=== PATIENT | female | born 1990 | race American Indian/Alaskan Native ===

== ENCOUNTER 2018-11-08 17:49 | Emergency (ER) | payer OTHER ==
[2018-11-08 19:11] VITALS: BMI 27.1
== END 2018-11-08 19:10 | disposition still patient (30) ==
LOC: C.EROB 17:49
DX: O42.92 Full-term premature rupture of membranes, unspecified as to length of time between rupture and onset of labor (principal); Z3A.39 39 weeks gestation of pregnancy

== ENCOUNTER 2018-11-08 17:49 | Inpatient (IN) | payer OTHER ==
[2018-11-08 19:11] VITALS: BMI 27.1
[2018-11-08] MEDS ORDERED: Oxytocin 10 Units/ml Inj IM ONE (19:11)
[2018-11-08] MEDS ORDERED: Lactated Ringer's 1,000 ML IV SCH (19:15)
--- NOTE | 2018-11-08 21:00 | OBHP ---
Datetime: 11/08/2018 19:21 IP Adm Impression: Term, intrauterine ; Active labor; Ruptured Membranes IP Admit Plan: Admit to unit; Initiate labor protocol Admit Comment, IP Provider: Patient is a 28 y/o female and sent from Dr. Alcaraz's office aft er seen in her office and found to be 4 cms dilated and with SROM in the office and with contractions . She rates her current pain at an 8/10 and constant. She feels her baby moving. She denies any feve rs, chest pain, shortness of breath, recent travel, or sick contacts. She is experiencing some vagina l bleeding. PMHx: Denies PSHx: Denies FMHx: Denies PsychHx: Denies OB: 2 previous spontaneous vaginal deliveries (one at 39 weeks,another at 38.6 weeks), JOZEF: 9, FDLMP: 02/08/18, GBS -, RPR -, varicella Ab +, Rubella ab +, - Hep B, - HIV 1 _ 2 EMAIL MARKETING ASSISTANT: Menarche at 14, no hx of STIs, 28 day cycle, cycle length 5 days, no irregularities in cycle Medications: denies Allergies:NKDA Social: Patient is and lives with her Vitals VSS Assesment: 28 y/o F at 39 weeks gestation presents in labor and with rupture of membranes Plan: Admit to L_D Admit labs ordered Anticipated vaginal delivery Ian Almonte, OMS-III Pt seen and examined with Med Student Mr. Almonte and all of his findings and POC were reviewed and agreed on. Pelvic Type - PN: Adequate Extremities - PN: Normal Abdomen - PN: Normal Back - PN: Not Done Breast - PN: Not Done Lungs - PN: Normal Heart - PN: Normal Thyroid - PN: Not Done Neurologic - PN: Not Done HEENT - PN: Normal General - PN: Normal FHR - Baseline A Provider: 120 Amniotic Fluid Color, Provider: Clear Membranes, Provider: Ruptured Contraction Comments Provider: Q 2-3 mins Comments, ACOG Physical Exam: General: Patient appears uncomfortable and in pain Cardiac: RRR, -S3, -S4 Pulmonary: CTA b/l Gestation - Est Wks by US: 39.0 IP Hx Assessment: The History has been Reviewed and is Current EGA AdmitDate IP: 39.0 Vital Signs Provider: Reviewed; Within Normal Limits IP Indication for Induction: Not Applicable IP Chief Complaint: Uterine contractions; Suspected ruptured membranes NICHD Variability Prov Fetus A: Moderate 6-25bpm NICHD Accel Fetus A IP Provider: 15X15 FHR Category Provider Fetus A: Category I NICHD Decel Fetus A IP Provider: None Dilatation, Provider: 6 Effacement, Provider: 90 Station, Provider: 0 Genitourinary Exam: Normal DTRs - PN: Not Done
--- NOTE | 2018-11-08 21:03 | OBADHP ---
Datetime: 11/08/2018 19:21 Admit Comment, IP Provider: Patient is a 28 y/o female and sent from Dr. Alcaraz's office aft er seen in her office and found to be 4 cms dilated and with SROM in the office and with contractions . She rates her current pain at an 8/10 and constant. She feels her baby moving. She denies any feve rs, chest pain, shortness of breath, recent travel, or sick contacts. She is experiencing some vagina l bleeding. PMHx: Denies PSHx: Denies FMHx: Denies PsychHx: Denies OB: 2 previous spontaneous vaginal deliveries (one at 39 weeks,another at 38.6 weeks), JOZEF: 9, FDLMP: 02/08/18, GBS -, RPR -, varicella Ab +, Rubella ab +, - Hep B, - HIV 1 _ 2 BACK HOE MACHINE OPERATOR: Menarche at 14, no hx of STIs, 28 day cycle, cycle length 5 days, no irregularities in cycle Medications: denies Allergies:NKDA Social: Patient is and lives with her Vitals VSS Assesment: 28 y/o F at 39 weeks gestation presents in labor and with rupture of membranes Plan: Admit to L_D Admit labs ordered Precipitous Vaginal Delivery shortly after admission See Delivery Note Ian Almonte, OMS-III Pt seen and examined with Med Student Mr. Almonte and all of his findings and POC were reviewed and agreed on. Pelvic Type - PN: Adequate Extremities - PN: Normal Abdomen - PN: Normal Back - PN: Not Done Breast - PN: Not Done Lungs - PN: Normal Heart - PN: Normal Thyroid - PN: Not Done Neurologic - PN: Not Done HEENT - PN: Normal General - PN: Normal FHR - Baseline A Provider: 120 Amniotic Fluid Color, Provider: Clear Membranes, Provider: Ruptured Contraction Comments Provider: Q 2-3 mins Comments, ACOG Physical Exam: General: Patient appears uncomfortable and in pain Cardiac: RRR, -S3, -S4 Pulmonary: CTA b/l Gestation - Est Wks by US: 39.0 IP Hx Assessment: The History has been Reviewed and is Current Vital Signs Provider: Reviewed; Within Normal Limits IP Chief Complaint: Uterine contractions; Suspected ruptured membranes NICHD Variability Prov Fetus A: Moderate 6-25bpm NICHD Accel Fetus A IP Provider: [id number] FHR Category Provider Fetus A: Category I NICHD Decel Fetus A IP Provider: None Dilatation, Provider: 6 Effacement, Provider: 90 Station, Provider: 0 Genitourinary Exam: Normal DTRs - PN: Not Done EGA AdmitDate IP: 39.0 IP Adm Impression: Term, intrauterine ; Active labor; Ruptured Membranes IP Admit Plan: Admit to unit; Initiate labor protocol
--- NOTE | 2018-11-08 21:14 | OBDS ---
DELIVERY PERSONNEL Delivery Doctor: Leonora Johnson DO Scrub Nurse: Patti Griffiths Chemistry Technical Officer: Carmita Rawls RN MATERNAL INFORMATION Delivery Anesthesia: None Medications in Delivery: PITOCIN Estimated Blood Loss (ml): 200 (Annotations: Data stored by CPN on behalf of user) Maternal Complications: None RN Comments: LIVE BABY BOY Provider Comments: Precipitous Vaginal Delivery of a viable male from [place] position and over an intact perineum. Apgars 9_9 and BW 6lbs, 110z. Cord Blood and Cord Ph obtained and sent Placenta with 3 vessel cord and spontaneously delivered. EBL 200 Pt ant both tolerated the procedure well and remained in LDR Room in S_S condition LABOR SUMMARY EDC: 11/15/2018 00:00 No. Babies in Womb: 1 Attempted: No Labor Anesthesia: None LABOR INFORMATION Onset of Labor: 11/08/2018 16:30 Complete Dilatation: 11/08/2018 19:00 Steroids Given: None Reason Steroids Not Administered: Not Applicable MEMBRANES Membranes Rupture Method: Spontaneous Rupture of Membranes: 11/08/2018 16:30 Length of Rupture (hrs): 2.52 Amniotic Fluid Color: Clear Amniotic Fluid Amount: Moderate Amniotic Fluid Odor: None STAGES OF LABOR Stage 1 hrs: 2 Stage 1 min: 30 Stage 2 hrs: 0 Stage 2 min: 1 Stage 3 hrs: 0 Stage 3 min: 4 Total Time in Labor hrs: 2 Total Time in Labor min: 35 VAGINAL DELIVERY Episiotomy: None Laceration Extension: N/A Laceration Type: None Laceration Repair: Not Applicable Initial Vag Sponge Count: 10 Final Vag Sponge Count: 10 Initial Vag Sharps Count: 0 Final Vag Sharps Count: 0 Sponge Count Correct: Yes Sharps Count Correct: N/A BABY A INFORMATION Infant Delivery Date/Time: 11/08/2018 19:01 Method of Delivery: Vaginal Born in Route : No : N/A Forceps: N/A Vacuum Extraction: N/A Shoulder Dystocia : No SHOULDER DYSTOCIA BABY A Infant Delivery Date/Time: 11/08/2018 19:01 PRESENTATION/POSITION BABY A Presentation: Cephalic Cephalic Presentation: Vertex Vertex Position: Right Occipital Anterior Breech Presentation: N/A PLACENTA INFORMATION BABY A Placenta Delivery Time : 11/08/2018 19:05 Placenta Method of Delivery: Spontaneous Placenta Status: Delivered SCORES BABY A Heart Rate 1 min: >100 bpm Resp Effort 1 min: Good Cry Reflex Irritability 1 min: Cough or Sneeze or Pulls Away Muscle Tone 1 min: Active Motion Color 1 min: Body [place], Extremities Blue Resuscitation Effort 1 min: Tactile Stimulation SCORE 1 MIN: 9 Heart Rate 5 min: >100 bpm Resp Effort 5 min: Good Cry Reflex Irritability 5 min: Cough or Sneeze or Pulls Away Muscle Tone 5 min: Active Motion Color 5 min: Body [place], Extremities Blue Resuscitation Effort 5 min: Tactile Stimulation SCORE 5 MIN: 9 INFORMATION BABY A Gestational Age at Delivery: 39.0 Gestational Status: Term Outcome : Liveborn Infant Condition : Stable Sex: Male IDENTIFICATION/MEDS BABY A ID Band Number: [id number] ID Band Location: Left Leg; Left Arm Sensor Applied: Yes Sensor Number: [id number] Sensor Location : Cord Clamp Vitamin K Given : Not Given Erythromycin Given: Not Given WEIGHT/LENGTH BABY A Infant Birthweight (gms): 3025 Infant Weight (lb): 6 Infant Weight (oz): 11 Infant Length Inches: 19.50 Infant Length cms: 49.5 CORD INFORMATION BABY A No. Cord Vessels: 3 Nuchal Cord : N/A Cord Blood Taken: Yes Suction: Mouth; Nose ASSESSMENT BABY A Infant Complications: None Physical Findings at Delivery: Within Normal Limits Respirations: Appears Normal Registered Vascular Technologist (Rvt)/ALS Called : No Care By: TESS BRANNON Transferred To: Remains with Mother
[2018-11-08 21:41] LABS: BASO # 0.1 K/uL (0.0-0.2); BASO % 0.5 % (0.0-2.0); EOS % 0.3 % (0.0-4.0); HEMOGLOBIN 11.1 g/dL (11.0-16.0); LYMPH # 2.6 K/uL (1.0-4.3); LYMPH % 23.4 % (20.0-40.0); MEAN CELL VOLUME 91.6 fL (81.0-99.0); MEAN CORPUSCULAR HEMOGLOBIN 29.8 pg (27.0-31.0); MEAN CORPUSCULAR HGB CONC 32.5 g/dL (33.0-37.0); MEAN PLATELET VOLUME 10.6 fL (7.2-11.7); MONO # 0.9 K/uL (0.0-0.8); MONO % 8.6 % (0.0-10.0); NEUT # 7.3 K/uL (1.8-7.0); NEUT % 67.2 % (50.0-75.0); NRBC % 0.1 % (0.0-2.0); RBC 3.71 Mil/uL (3.80-5.20); RED CELL DISTRIBUTION WIDTH 15.5 % (11.5-14.5); WHITE BLOOD COUNT 10.9 K/uL (4.8-10.8)
[2018-11-08 21:50] LABS: SQUAMOUS EPITHIAL 40 /hpf (0-5); URINE BILIRUBIN NEGATIVE (NEGATIVE); URINE BLOOD 3+ (NEGATIVE); URINE CALCIUM OXALATE CRYSTALS OCC /hpf (<OCC); URINE CLARITY Turbid (Clear); URINE COLOR Amber (YELLOW); URINE GLUCOSE (UA) NORMAL (Normal); URINE LEUKOCYTE ESTERASE 1+ Leu/uL (Negative); URINE PROTEIN 2+ mg/dL (NEGATIVE); URINE UROBILINOGEN NORMAL mg/dL (0.2-1.0)
[2018-11-08 21:57] LABS: ALB/GLOB RATIO 1.2 (1.0-2.1); ALBUMIN 3.6 g/dL (3.5-5.0); AST/SGOT 23 U/L (14-36); BLOOD UREA NITROGEN 7 mg/dL (7-17); CALCIUM 9.5 mg/dl (8.6-10.4); GFR NON-AFRICAN AMERICAN > 60
[2018-11-08 21:58] LABS: ALT/SGPT < 6 U/L (9-52)
[2018-11-09] MEDS: Oxycodone/Acetaminophen 5/325 mg Tab PO PRN ×2 (04:59→17:53)
[2018-11-09 08:07] LABS: BASO # 0.1 K/uL (0.0-0.2); BASO % 0.6 % (0.0-2.0); EOS # 0.1 K/uL (0.0-0.7); EOS % 0.3 % (0.0-4.0); HEMOGLOBIN 10.7 g/dL (11.0-16.0); LYMPH # 2.2 K/uL (1.0-4.3); LYMPH % 13.7 % (20.0-40.0); MEAN CELL VOLUME 91.5 fL (81.0-99.0); MEAN CORPUSCULAR HEMOGLOBIN 30.1 pg (27.0-31.0); MEAN CORPUSCULAR HGB CONC 32.9 g/dL (33.0-37.0); MONO # 1.5 K/uL (0.0-0.8); MONO % 9.6 % (0.0-10.0); NEUT # 12.1 K/uL (1.8-7.0); NEUT % 75.8 % (50.0-75.0); RBC 3.56 Mil/uL (3.80-5.20); RED CELL DISTRIBUTION WIDTH 15.4 % (11.5-14.5)
[2018-11-09 09:20] VITALS: RESP 18
[2018-11-09] MEDS: Multiple Vitamins Tab PO SCH (10:16)
[2018-11-10] MEDS: Oxycodone/Acetaminophen 5/325 mg Tab PO PRN (08:05)
[2018-11-10 08:07] VITALS: BP 111/71; PULSE 79; TEMP 97.8; O2SAT 100
--- NOTE | 2018-11-10 09:02 | OBPPN ---
Datetime: 11/10/2018 09:01 PP Pain Prov: Within normal limits PP Nausea Prov: Denies PP Flatus Prov: Yes PP Breasts Prov: Normal PP Heart Prov: Normal PP Lungs Prov: Normal PP Abdomen/Uterus Prov: Normal PP Lochia Prov: Normal PP Vulva/Perineum Prov: Normal PP CVA Tenderness Prov: Normal PP Extremities Prov: Normal PP Impression Prov: Normal progression PP Plan Prov: Continue present management; Discharge
--- NOTE | 2018-11-10 09:04 | OBDCSUM ---
Datetime: 11/10/2018 09:01 Discharged to, Provider: Home Follow up at, Provider: dr jeff Naik Instr Activity: Normal activity Disch Instr Diet: Regular Discharge Instructions, Provider: Routine instructions given Discharge Diagnosis, Provider: Term Delivered Discharge Time: 11/10/2018 09:01 Follow up in weeks, Provider: Rikki Naik Referrals: None Contraception discussed, Prov: Yes Contraception after Delivery: Not Planning to Use
[2018-11-10 09:19] LABS: BASO % 0.4 % (0.0-2.0); EOS # 0.2 K/uL (0.0-0.7); EOS % 1.6 % (0.0-4.0); HEMOGLOBIN 10.5 g/dL (11.0-16.0); LYMPH # 3.4 K/uL (1.0-4.3); LYMPH % 28.3 % (20.0-40.0); MEAN CELL VOLUME 92.1 fL (81.0-99.0); MEAN CORPUSCULAR HEMOGLOBIN 29.9 pg (27.0-31.0); MEAN CORPUSCULAR HGB CONC 32.5 g/dL (33.0-37.0); MONO # 0.7 K/uL (0.0-0.8); MONO % 6.2 % (0.0-10.0); NEUT # 7.6 K/uL (1.8-7.0); NEUT % 63.5 % (50.0-75.0); NRBC % 0.1 % (0.0-2.0); RBC 3.52 Mil/uL (3.80-5.20); RED CELL DISTRIBUTION WIDTH 15.6 % (11.5-14.5); WHITE BLOOD COUNT 11.9 K/uL (4.8-10.8)
[2018-11-10] MEDS: Multiple Vitamins Tab PO SCH (09:51)
== END 2018-11-10 12:25 | disposition home or self-care (01) | DRG 807 ==
LOC: C.EROB 17:49 → C.4D 19:10 → C.4M 23:40
PROVIDERS: ADMIT Obstetrics & Gynecology; ATTEND Obstetrics & Gynecology
PROC: 10E0XZZ Delivery of Products of Conception, External Approach (ICD-10-PCS; principal; 2018-11-08)
DX: O62.3 Precipitate labor (principal); Z37.0 Single live birth; Z3A.39 39 weeks gestation of pregnancy